=== PATIENT | female | born 1985 | race Caucasian/White ===

== ENCOUNTER → 2018-09-11 | Outpatient (CLI) | payer OTHER ==
--- NOTE | 2018-09-11 15:38 | US ---
EXAMINATION TYPE: US abdomen complete DATE OF EXAM: 09/11/2018 COMPARISON: NONE CLINICAL HISTORY: 33-year-old female R10.84 ABD Pain, R14.0 Bloating. NPO. Epigastric pain. Diarrhe a. TECHNIQUE: Multiple sonographic images of the abdomen are obtained. FINDINGS: EXAM MEASUREMENTS: Liver Length: 14.4 cm Gallbladder Wall: 0.1 cm CBD: 0.3 cm Spleen: 8.4 cm Right Kidney: 10.5 x 4.3 x 3.1 cm Left Kidney: 9.5 x 4.3 x 5.0 cm Pancreas: Within normal limits. Liver: wnl Gallbladder: wnl Evidence for sonographic Hinojosa's sign: neg CBD: wnl Spleen: wnl Right Kidney: wnl Left Kidney: wnl Upper IVC: wnl Abd Aorta: No AAA visualized IMPRESSION: Unremarkable sonographic examination of the abdomen.
--- NOTE | 2018-09-12 10:30 | NM ---
EXAMINATION TYPE: NM hepatobiliary w EF DATE OF EXAM: 09/11/2018 COMPARISON: NONE HISTORY: Right upper quadrant pain TECHNIQUE: After the intravenous administration of 4.66 mCi Tc 99m Mebrofenin hepatobiliary scintigra phy is performed. Immediate images post injection. 8 fluid ounces of Ensure Plus was administered by mouth. FINDINGS: There is satisfactory initial accumulation of tracer by the liver. The gallbladder is visualized wit hin 12 minutes. The small bowel activity is noted within 14 minutes. At one hour 8 ounces of oral e nsure plus is given to mimic CCK and gallbladder ejection fraction is not appropriately calculated gi lavon extensive overlying bowel content. IMPRESSION: Exam is within normal limits. Limited CCK calculation as noted above.
== END | disposition home or self-care (01) ==
LOC: RADUSWWP 11:53
PROVIDERS: ATTEND Family Medicine
DX: R10.84 Generalized abdominal pain (principal); R14.0 Abdominal distension (gaseous); Z88.5 Allergy status to narcotic agent
CPT/HCPCS: 76700; 78226; A9537

== ENCOUNTER → 2018-10-04 | Day surgery (SDC) | payer OTHER ==
[2018-10-01 09:11] VITALS: BMI 20.5
[~2018-10-04] MED LIST: LACTATED RINGERS 1,000 ML IV SCH; LIDOCAINE 1% INJ 10MG/ML (20 ML MDV) ONE; PROPOFOL 10 MG/ML 20 ML VIAL IV ONE
[2018-10-04 07:54] VITALS: TEMP 97.3
--- NOTE | 2018-10-04 08:42 | P.GSHP ---
History of Present Illness H&P Date: 10/04/18 Chief Complaint: Peptic ulcer disease, GI bleed This is a 33-year-old female with a known history of peptic ulcer disease. Patient also had some rectal bleeding. She presents today for EGD and colonoscopy. Past Medical History Past Medical History: GERD/Reflux Additional Past Medical History / Comment(s): "abdominal pain and bloating between rib area It feels like there is a rock there and diarrhea daily",hx hemorrhoids History of Any Multi-Drug Resistant Organisms: None Reported Past Surgical History: No Surgical Hx Reported Additional Past Surgical History / Comment(s): rt wrist procedure Past Anesthesia/Blood Transfusion Reactions: No Reported Reaction Additional Past Anesthesia/Blood Transfusion Reaction / Comment(s): no hx blood transfusion Smoking Status: Current every day smoker - Past Family History Mother Family Medical History: No Reported History Medications and Allergies Home Medications Medication Instructions Recorded Confirmed Type No Known Home Medications 10/01/18 10/04/18 History Allergies Allergy/AdvReac Type Severity Reaction Status Date / Time fentanyl Allergy Berny Verified 10/04/18 07:52 Alexey Syndrome hydromorphone [From Dilaudid] Allergy Berny Verified 10/04/18 07:52 Alexey Syndrome morphine Allergy Berny Verified 10/04/18 07:52 Alexey Syndrome Surgical - Exam Vital Signs Temp Pulse Resp BP Pulse Ox 97.3 F L 92 17 118/86 99 10/04/18 07:53 10/04/18 07:53 10/04/18 07:53 10/04/18 07:53 10/04/18 07:53 - General well developed, well nourished, no distress - Eyes PERRL - ENT normal pinna - Neck no masses - Respiratory normal expansion - Cardiovascular Rhythm: regular - Abdomen Abdomen: soft, non tender Assessment and Plan Assessment: History of peptic ulcers disease and GI bleed. We'll perform colonoscopy.
--- NOTE | 2018-10-04 09:03 | P.OP ---
Date of Procedure: 10/04/18 Preoperative Diagnosis: Peptic ulcer disease GI bleed Abdominal bloating Postoperative Diagnosis: Mild antral gastritis Normal colon Internal and external hemorrhoids Procedure(s) Performed: Colonoscopy Anesthesia: MAC Surgeon: Guy Daily Pathology: other (Antrum) Condition: stable Disposition: PACU Description of Procedure: The patient's placed on the endoscopy table in the lateral position. She received IV sedation. Digital rectal exam was performed which revealed internal/external hemorrhoids. The flexible colonoscope was then placed patient anus passed rotator entire colon. The ileocecal valve was visualized. The cecum, ascending and transverse colon appeared normal. The descending and sigmoid colon appeared normal. The scope was then brought back the rectum this is normal. Scope was withdrawn. Anus and internal hemorrhoids were noted. It was thought that this was a source of her previous GI bleed. Next the gastroscope placed oropharynx passed in the esophagus and stomach. Scope was then placed through the pylorus. The first and second portion of the duodenum appeared normal. Scope was then brought back the antrum was mildly inflamed. A biopsy performed. The scope was then retroflexed and the remainder of the stomach appeared normal. There was no significant hiatal hernia. The GE junction was at 40 cm the distal esophagus appeared normal. The proximal esophagus appeared normal. Scope withdrawn for patient.
[2018-10-04 09:08] VITALS: RESP 18
[2018-10-04 09:27] VITALS: BP 100/59; PULSE 68
--- NOTE | 2018-10-04 11:39 | NM ---
EXAMINATION TYPE: NM hepatobiliary w CCK DATE OF EXAM: 10/04/2018 COMPARISON: Prior nuclear medicine hepatobiliary scan of 09/11/2018 HISTORY: Indigestion TECHNIQUE: After the intravenous administration of 4.41 mCi Tc 99m Mebrofenin hepatobiliary scintigra phy is performed. Immediate images post injection. FINDINGS: There is satisfactory initial accumulation of tracer by the liver. The gallbladder is visualized wit hin 14 minutes. The small bowel activity is noted within 8 minutes. At one hour CCK was administere d, patient was injected with 1.1 mcg of Kinevac, and gallbladder ejection fraction is calculated at 7 3 %, slightly elevated. Therefore there is no scintigraphic evidence of cystic or common bile duct o bstruction to suggest acute cholecystitis or gallbladder dyskinesia. IMPRESSION: 1. No scintigraphic evidence of acute or chronic cholecystitis. 2. Slightly elevated gallbladder ejection fraction of 73%.
== END ==
LOC: ORWHC2ENDO 07:38
PROVIDERS: ATTEND Surgery
DX: K29.50 Unspecified chronic gastritis without bleeding (principal); K64.8 Other hemorrhoids; K64.4 Residual hemorrhoidal skin tags; Z87.11 Personal history of peptic ulcer disease; K21.9 Gastro-esophageal reflux disease without esophagitis; F17.200 Nicotine dependence, unspecified, uncomplicated; Z88.5 Allergy status to narcotic agent
CPT/HCPCS: 81025; 88305; 88342; 78227; 45378; 43239; A9537; J2805; J2001; J2704

== ENCOUNTER 2019-09-05 10:28 | Day surgery (SDC) | payer OTHER ==
[2019-09-03 13:20] VITALS: BMI 20.7
[~2019-09-05 10:28] MED LIST changes: -LIDOCAINE 1% INJ 10MG/ML (20 ML MDV) ONE; -PROPOFOL 10 MG/ML 20 ML VIAL IV ONE
[2019-09-05 11:49] VITALS: RESP 16; TEMP 97.2
[2019-09-05] MEDS ORDERED: MIDAZOLAM 2 MG/2 ML VIAL IV ONE (11:56)
--- NOTE | 2019-09-05 12:44 | P.GSHP ---
History of Present Illness H&P Date: 09/05/19 Chief Complaint: GERD This a 34-year-old female presents today for EGD. Patient presents with GERD. Past Medical History Past Medical History: GERD/Reflux Additional Past Medical History / Comment(s): "bad acid reflux" H-Pylori 08/2018, ulcer, diarrhea, hemorrhoids, History of Any Multi-Drug Resistant Organisms: None Reported Past Surgical History: Orthopedic Surgery Additional Past Surgical History / Comment(s): rachna salpingectomy, De Quervains surgery rt wrist, EGD, Colonoscopy Past Anesthesia/Blood Transfusion Reactions: Motion Sickness Additional Past Anesthesia/Blood Transfusion Reaction / Comment(s): . Smoking Status: Current every day smoker - Past Family History Mother Family Medical History: No Reported History Medications and Allergies Home Medications Medication Instructions Recorded Confirmed Type Pepcid(Dose Unknown) 1 tab PO BID 09/03/19 09/03/19 History Sucralfate [Carafate] 1 gm PO TID 09/03/19 09/05/19 History Allergies Allergy/AdvReac Type Severity Reaction Status Date / Time fentanyl Allergy Berny Verified 09/05/19 11:36 Alexey Syndrome hydromorphone [From Dilaudid] Allergy Berny Verified 09/05/19 11:36 Alexey Syndrome meperidine [From Demerol] Allergy berny Verified 09/05/19 11:36 alexey syndrome morphine Allergy Berny Verified 09/05/19 11:36 Alexey Syndrome Surgical - Exam Vital Signs Temp Pulse Resp BP Pulse Ox 97.2 F L 90 16 101/67 98 09/05/19 11:43 09/05/19 11:43 09/05/19 11:43 09/05/19 11:43 09/05/19 11:43 - General well developed, well nourished, no distress - Eyes PERRL - ENT normal pinna - Neck no masses - Respiratory normal expansion - Cardiovascular Rhythm: regular - Abdomen Abdomen: soft, non tender Assessment and Plan Assessment: GERD. We'll perform EGD.
--- NOTE | 2019-09-05 12:57 | P.OP ---
Date of Procedure: 09/05/19 Preoperative Diagnosis: GERD Gastritis Postoperative Diagnosis: Mild antral gastritis Anesthesia: MAC Surgeon: Guy Daily Pathology: other (Antrum, esophagus) Condition: stable Disposition: PACU Description of Procedure: The patient's placed on the endoscopy table in the lateral position. She received IV sedation. The gastroscope placed oropharynx passed in the esophagus and stomach. Scope was pylorus. The first and second portion duodenum appeared normal. Scope was then brought back the antrum was mildly inflamed. A biopsies performed. The scope was then retroflexed and the stomach. Normal. There is no significant hiatal hernia. The GE junction was at 40 cm. The distal esophagus. Inflamed a biopsies performed. The proximal esophagus appeared normal. Scope was withdrawn for patient.
[2019-09-05 13:16] VITALS: BP 98/62; PULSE 77
== END 2019-09-05 13:28 | disposition home or self-care (01) ==
LOC: ORWHC2ENDO 10:28
PROVIDERS: ATTEND Surgery
DX: K21.0 Gastro-esophageal reflux disease with esophagitis (principal); K29.50 Unspecified chronic gastritis without bleeding; F17.200 Nicotine dependence, unspecified, uncomplicated; F41.9 Anxiety disorder, unspecified; Z90.79 Acquired absence of other genital organ(s); Z98.890 Other specified postprocedural states; Z79.899 Other long term (current) drug therapy; Z88.4 Allergy status to anesthetic agent; Z88.5 Allergy status to narcotic agent
CPT/HCPCS: 81025; 88305; 43239; J2250

== ENCOUNTER 2024-09-16 09:00 | Emergency (ER) | payer OTHER ==
[2024-09-16] MEDS: KETOROLAC 15 MG/ML 1 ML VIAL IVP STA ×2 (10:00→13:18)
[2024-09-16] MEDS: ONDANSETRON 4 MG/2 ML VIAL IVP STA (10:00)
[2024-09-16] MEDS: SODIUM CHLORIDE 0.9% 1,000 ML IV ONE (10:01)
[2024-09-16 10:17] LABS: Basophils # (A) 0.08 10*3/uL (0.00-0.10); Basophils % (A) 1.4 %; Eosinophils # (A) 0.31 10*3/uL (0.04-0.35); Eosinophils % (A) 5.2 %; HCT 40.7 % (37.2-46.3); HGB 14.0 g/dL (12.0-15.0); Lymphocytes # (A) 1.74 10*3/uL (0.90-5.00); Lymphocytes % (A) 29.4 %; MCH 31.3 pg (27.0-32.0); MCHC 34.4 g/dL (32.0-37.0); MCV 91.1 fL (80.0-97.0); Monocytes # (A) 0.47 10*3/uL (0.20-1.00); Monocytes % (A) 8.0 %; Neutrophils # (A) 3.30 10*3/uL (1.80-7.70); Neutrophils % (A) 55.8 %; Platelet Count 292 10*3/uL (140-440); RBC 4.47 10*6/uL (4.10-5.20); RDW 11.8 % (11.5-14.5); WBC 5.91 10*3/uL (4.50-10.00)
[2024-09-16 10:19] LABS: Bilirubin,Urine Negative (Negative); Blood,Urine Negative (Negative); Color,Urine Colorless; Glucose,Urine (UA) Negative (Negative); Ketones,Urine Negative (Negative); Leukocyte Esterase,Urine Negative (Negative); Nitrite,Urine Negative (Negative); PH, Urine 7.5 (5.0-8.0); Protein,Urine Negative (Negative); Specific Gravity,Urine 1.015 (1.001-1.035); Urobilinogen,Urine <2.0 mg/dL (<2.0)
[2024-09-16 10:31] LABS: ALT 18 U/L (4-34); AST 21 U/L (14-36); African American GFR (CKD) 87 (>60 ml/min/1.73 sqM); Albumin 3.8 g/dL (3.5-5.0); Alkaline Phosphatase 57 U/L (38-126); Anion Gap 5 mmol/L; Blood Urea Nitrogen 11 mg/dL (7-17); Calcium 8.8 mg/dL (8.4-10.2); Carbon Dioxide 26 mmol/L (22-30); Chloride 106 mmol/L (98-107); Glucose 80 mg/dL (74-99); Lipase 65 U/L (23-300); Non-African American GFR(CKD) 75 (>60 ml/min/1.73 sqM); Potassium 4.3 mmol/L (3.5-5.1); Sodium 137 mmol/L (137-145); Total Protein 6.1 g/dL (6.3-8.2)
--- NOTE | 2024-09-16 11:34 | CT ---
EXAMINATION TYPE: CT abdomen pelvis w con DATE OF EXAM: 09/16/2024 11:21 AM COMPARISON: None. CLINICAL INDICATION: Female, 39 years old with history of abdominal pain RLQ, rlq pain TECHNIQUE:CT scan of the abdomen and pelvis is performed without Oral Contrast and with IV Contrast, patient injected with 100ml mL of Isovue 300. CT DLP: 580.2 mGycm, Automated exposure control for dose reduction was used. FINDINGS: LUNG BASES-: No visible nodule. No infiltrate. LIVER/GB: No calcified gallstones. No space occupying hepatic lesion. Biliary tree is of normal ca liber. PANCREAS: No inflammation. No distinct mass. SPLEEN: No splenic enlargement. No lesion seen. ADRENALS: No nodule. No thickening. KIDNEYS/BLADDER: No hydronephrosis. No nephrolithiasis. No distinct renal mass. Urinary bladder g rossly unremarkable. BOWEL: Normal appendix. Normal bowel caliber. No inflammation. GENITAL ORGANS: No gross abnormality. LYMPH NODES: No greater than 1cm abdominal or pelvic lymph nodes are appreciated. AORTA: No significant abnormality. OSSEOUS STRUCTURES: No significant abnormality is seen. OTHER: No significant additional abnormality is seen. IMPRESSION: 1. Normal appendix no acute process is seen. Multiple small right ovarian follicular cysts. [facility], , 09/16/2024 11:31 AM
--- NOTE | 2024-09-16 12:34 | ED ---
Abdominal Pain HPI - General Chief Complaint: Abdominal Pain Stated Complaint: Lower right abd pain Time Seen by Provider: 09/16/24 09:02 Source: patient, RN notes reviewed Mode of arrival: ambulatory Limitations: no limitations - History of Present Illness Initial Comments: 39-year-old female presents emergency department complaint abdominal pain. Sarahi ent states pain is in the right lower quadrant. Sudden onset intermittent discomfort. Patient states she has had prior open to removal, no other abdominal surgeries denies any dysuria hematuria. No change in bowel habits. Denies any fevers or chills. Patient denies any change in vaginal bleeding or any other associated symptoms. - Related Data Home Medications Medication Instructions Recorded Confirmed Ferrous Sulfate [Feosol] 325 mg PO Q3D 09/16/24 09/16/24 Previous Rx's Medication Instructions Recorded Ketorolac [Toradol] 10 mg PO Q8HR #15 tab 09/16/24 Allergies Allergy/AdvReac Type Severity Reaction Status Date / Time fentanyl Allergy Berny Verified 09/16/24 11:18 Alexey Syndrome hydromorphone [From Dilaudid] Allergy Berny Verified 09/16/24 11:18 Alexey Syndrome meperidine [From Demerol] Allergy berny Verified 09/16/24 11:18 alexey syndrome morphine Allergy Berny Verified 09/16/24 11:18 Alexey Syndrome Review of Systems ROS Statement: Those systems with pertinent positive or pertinent negative responses have been documented in the HPI. ROS Other: All systems not noted in ROS Statement are negative. Past Medical History Past Medical History: GERD/Reflux Additional Past Medical History / Comment(s): "bad acid reflux" H-Pylori 08/2018, ulcer, diarrhea, hemorrhoids, History of Any Multi-Drug Resistant Organisms: None Reported Past Surgical History: Orthopedic Surgery Additional Past Surgical History / Comment(s): rachna salpingectomy, De Quervains surgery rt wrist, EGD, Colonoscopy Past Anesthesia/Blood Transfusion Reactions: Motion Sickness Additional Past Anesthesia/Blood Transfusion Reaction / Comment(s): . Past Psychological History: Anxiety Smoking Status: Current every day smoker Past Alcohol Use History: Rare Past Drug Use History: None Reported - Past Family History Mother Family Medical History: No Reported History General Exam Limitations: no limitations General appearance: alert, in no apparent distress Head exam: Present: atraumatic, normocephalic, normal inspection Eye exam: Present: normal appearance, PERRL, EOMI. Absent: scleral icterus, conjunctival injection, periorbital swelling Respiratory exam: Present: normal lung sounds bilaterally. Absent: respiratory distress, wheezes, rales, rhonchi, stridor Cardiovascular Exam: Present: regular rate, normal rhythm, normal heart sounds. Absent: systolic murmur, diastolic murmur, rubs, gallop, clicks GI/Abdominal exam: Present: soft, tenderness, normal bowel sounds. Absent: distended, guarding, rebound, rigid Back exam: Absent: CVA tenderness (R), CVA tenderness (L) Neurological exam: Present: alert, oriented X3, CN II-XII intact Skin exam: Present: warm, dry, intact, normal color. Absent: rash Course Vital Signs 09/16/24 09/16/24 09:10 13:24 Temperature 98.2 F 98.3 F Pulse Rate 121 H 62 Respiratory 20 18 Rate Blood Pressure 138/84 119/83 O2 Sat by Pulse 99 100 Oximetry Medical Decision Making - Medical Decision Making Was pt. sent in by a medical professional or institution (, PA, SLOT MACHINE KEY PERSON, urgent care, hospital, or long-term...) When possible be specific @ -[No] Did you speak to anyone other than the patient for history (EMS, parent, family, police, friend...)? What history was obtained from this source @ -[No] Did you review nursing and triage notes (agree or disagree)? Why? @ -[I reviewed and agree with nursing and triage notes] Were old charts reviewed (outside hosp., previous admission, EMS record, old EKG, old radiological studies, urgent care reports/EKG's, long-term records)? Report findings @ -[No old charts were reviewed] Differential Diagnosis (chest pain, altered mental status, abdominal pain women, abdominal pain men, vaginal bleeding, weakness, fever, dyspnea, syncope, heada kentrell, dizziness, GI bleed, back pain, seizure, CVA, palpatations, mental health, musculoskeletal)? @ -Differential Abdominal Pain Women: Appendicitis, Cholecystitis, diverticulosis, ischemic bowel, pancreatitis, hepatitis, UTI, gastroenteritis, AAA, incarcerated hernia, bowel obstruction, constipation, inflammatory bowel, hepatitis, peptic ulcer disease, splenic infarction, perforated viscus, vulvitis, ovarian torsion, PID, kidney stone, placenta abruption, this is not meant to be an all-inclusive list EKG interpreted by me (3pts min.). @ -None X-rays interpreted by me (1pt min.). @ -[None done] CT interpreted by me (1pt min.). @ -CT abdomen pelvis showing normal appendix, follicles are noted of the ovaries U/S interpreted by me (1pt. min.). @ -Also transvaginal shows multiple follicles no acute process What testing was considered but not performed or refused? (CT, X-rays, U/S, labs)? Why? @ -[None] What meds were considered but not given or refused? Why? @ -[None] Did you discuss the management of the patient with other professionals (professionals i.e. , PA, SLOT MACHINE KEY PERSON, lab, RT, psych nurse, social work therapist, ramp agent, teacher, corporate trust officer, manager research and development)? Give summary @ -[No] Was smoking cessation discussed for >3mins.? @ -[No] Was critical care preformed (if so, how long)? @ -[No] Were there social determinants of health that impacted care today? How? (Homelessness, low income, unemployed, alcoholism, drug addiction, transportation, low edu. Level, literacy, decrease access to med. care, intermediate, rehab)? @ -[No] Was there de-escalation of care discussed even if they declined (Discuss DNR or withdrawal of care, Hospice)? DNR status @ -[No] What co-morbidities impacted this encounter? (DM, HTN, Smoking, COPD, CAD, Cancer, CVA, ARF, Chemo, Hep., AIDS, mental health diagnosis, sleep apnea, morbid obesity)? @ -[None] Was patient admitted / discharged? Hospital course, mention meds given and route, prescriptions, significant lab abnormalities, going to OR and other pertinent info. @ -Discharge patient presented for abdominal pain with other quadrant. Patient has no evidence of appendicitis or acute process. Patient laboratory studies unremarkable urinalysis unremarkable. In stable condition return parameters rufus. Undiagnosed new problem with uncertain prognosis? @ -[No] Drug Therapy requiring intensive monitoring for toxicity (Heparin, Nitro, Insulin, Cardizem)? @ -[No] Were any procedures done? @ -[No] Diagnosis/symptom? @ -Abdominal pain Acute, or Chronic, or Acute on Chronic? @ -Acute Uncomplicated (without systemic symptoms) or Complicated (systemic symptoms)? @ -Complicated Side effects of treatment? @ -[No] Exacerbation, Progression, or Severe Exacerbation? @ -[No] Poses a threat to life or bodily function? How? (Chest pain, USA, MS, pneumonia, PE, COPD, DKA, ARF, appy, cholecystitis, CVA, Diverticulitis, Homicidal, Suicidal, threat to staff... and all critical care pts) @ -[No] - Lab Data Result diagrams: 09/16/24 09:34 09/16/24 09:34 Lab Results 09/16/24 09/16/24 09/16/24 Range/Units 09:34 09:34 09:34 WBC 5.91 (4.50-10.00) 10*3/uL RBC 4.47 (4.10-5.20) 10*6/uL Hgb 14.0 (12.0-15.0) g/dL Hct 40.7 (37.2-46.3) % MCV 91.1 (80.0-97.0) fL MCH 31.3 (27.0-32.0) pg MCHC 34.4 (32.0-37.0) g/dL Plt Count 292 (140-440) 10*3/uL MPV 9.1 L (9.5-12.2) fL Immature Gran % (Auto) 0.2 % Neutrophils % 55.8 % Lymphocytes % 29.4 % Monocytes % 8.0 % Eosinophils % 5.2 % Basophils % 1.4 % Immature Gran # 0.01 (0.00-0.04) 10*3/uL Neutrophils # 3.30 (1.80-7.70) 10*3/uL Lymphocytes # 1.74 (0.90-5.00) 10*3/uL Monocytes # 0.47 (0.20-1.00) 10*3/uL Eosinophils # 0.31 (0.04-0.35) 10*3/uL Basophils # 0.08 (0.00-0.10) 10*3/uL Sodium 137 (137-145) mmol/L Potassium 4.3 (3.5-5.1) mmol/L Chloride 106 (98-107) mmol/L Carbon Dioxide 26 (22-30) mmol/L Anion Gap 5 mmol/L BUN 11 (7-17) mg/dL Creatinine 0.95 (0.52-1.04) mg/dL Est GFR (CKD-EPI)AfAm 87 (>60 ml/min/1.73 sqM) Est GFR (CKD-EPI)NonAf 75 (>60 ml/min/1.73 sqM) Glucose 80 (74-99) mg/dL Plasma Lactic Acid Masood (0.7-2.0) mmol/L Calcium 8.8 (8.4-10.2) mg/dL Total Bilirubin 0.5 (0.2-1.3) mg/dL AST 21 (14-36) U/L ALT 18 (4-34) U/L Alkaline Phosphatase 57 (38-126) U/L Total Protein 6.1 L (6.3-8.2) g/dL Albumin 3.8 (3.5-5.0) g/dL Lipase 65 (23-300) U/L Urine Color Colorless Urine Appearance Clear (Clear) Urine pH 7.5 (5.0-8.0) Ur Specific [place] 1.015 (1.001-1.035) Urine Protein Negative (Negative) Urine Glucose (UA) Negative (Negative) Urine Ketones Negative (Negative) Urine Blood Negative (Negative) Urine Nitrite Negative (Negative) Urine Bilirubin Negative (Negative) Urine Urobilinogen <2.0 (<2.0) mg/dL Ur Leukocyte Esterase Negative (Negative) 09/16/24 Range/Units 09:34 WBC (4.50-10.00) 10*3/uL RBC (4.10-5.20) 10*6/uL Hgb (12.0-15.0) g/dL Hct (37.2-46.3) % MCV (80.0-97.0) fL MCH (27.0-32.0) pg MCHC (32.0-37.0) g/dL Plt Count (140-440) 10*3/uL MPV (9.5-12.2) fL Immature Gran % (Auto) % Neutrophils % % Lymphocytes % % Monocytes % % Eosinophils % % Basophils % % Immature Gran # (0.00-0.04) 10*3/uL Neutrophils # (1.80-7.70) 10*3/uL Lymphocytes # (0.90-5.00) 10*3/uL Monocytes # (0.20-1.00) 10*3/uL Eosinophils # (0.04-0.35) 10*3/uL Basophils # (0.00-0.10) 10*3/uL Sodium (137-145) mmol/L Potassium (3.5-5.1) mmol/L Chloride (98-107) mmol/L Carbon Dioxide (22-30) mmol/L Anion Gap mmol/L BUN (7-17) mg/dL Creatinine (0.52-1.04) mg/dL Est GFR (CKD-EPI)AfAm (>60 ml/min/1.73 sqM) Est GFR (CKD-EPI)NonAf (>60 ml/min/1.73 sqM) Glucose (74-99) mg/dL Plasma Lactic Acid Masood 0.8 (0.7-2.0) mmol/L Calcium (8.4-10.2) mg/dL Total Bilirubin (0.2-1.3) mg/dL AST (14-36) U/L ALT (4-34) U/L Alkaline Phosphatase (38-126) U/L Total Protein (6.3-8.2) g/dL Albumin (3.5-5.0) g/dL Lipase (23-300) U/L Urine Color Urine Appearance (Clear) Urine pH (5.0-8.0) Ur Specific [place] (1.001-1.035) Urine Protein (Negative) Urine Glucose (UA) (Negative) Urine Ketones (Negative) Urine Blood (Negative) Urine Nitrite (Negative) Urine Bilirubin (Negative) Urine Urobilinogen (<2.0) mg/dL Ur Leukocyte Esterase (Negative) Disposition Clinical Impression: Abdominal pain Disposition: HOME SELF-CARE Condition: Stable Instructions (If sedation given, give patient instructions): Abdominal Pain (ED) Additional Instructions: Please return to the Emergency Department if symptoms worsen or any other concerns. Prescriptions: Ketorolac [Toradol] 10 mg PO Q8HR #15 tab Is patient prescribed a controlled substance at d/c from ED?: No Referrals: Christiano Medrano DO [Primary Care Provider] - 1-2 days Time of Disposition: 13:00
--- NOTE | 2024-09-16 12:40 | US ---
EXAMINATION TYPE: US transvaginal DATE OF EXAM: 09/16/2024 COMPARISON: CT 09/16/2024 CLINICAL INDICATION: Female, 39 years old with history of pain right; Right sided pelvic pain since . TECHNIQUE: Transvaginal (TV). Transvaginal grayscale sonographic images of the pelvis were acquired Doppler imaging: Color Doppler Images were obtained. Spectral doppler images were obtained. FINDINGS: Date of LMP: 09/05/2024 EXAM MEASUREMENTS: Uterus: 7.0 x 3.8 x 4.6 cm Endometrial Stripe: 0.2 cm Right Ovary: 2.6 x 2.1 x 2.0 cm Left Ovary: 3.2 x 1.3 x 2.4 cm 1. Uterus: Anteverted wnl, nabothian cyst seen 2. Endometrium: wnl 3. Right Ovary: wnl, multiple follicles visualized 4. Left Ovary: wnl, multiple follicles seen Spectral, color and waveform doppler imaging shows good arterial and venous flow within the ovaries ; there is no evidence for ovarian torsion. 5. Bilateral Adnexa: wnl 6. Posterior cul-de-sac: wnl Anteverted uterus without focal lesion. Incidental cervical nabothian cyst. Endometrium is within nor mal limits. Both ovaries appear unremarkable multiple follicles seen. No evidence for torsion. No leah e fluid. IMPRESSION: No ultrasound evidence for acute pelvic process. [facility], , 09/16/2024 12:37 PM
[2024-09-16 13:25] VITALS: BP 119/83; PULSE 62; RESP 18; TEMP 98.3
== END 2024-09-16 13:25 | disposition home or self-care (01) ==
LOC: EC 09:00
DX: R10.31 Right lower quadrant pain (principal); Z90.79 Acquired absence of other genital organ(s); F17.200 Nicotine dependence, unspecified, uncomplicated; Z88.5 Allergy status to narcotic agent; Z88.8 Allergy status to other drugs, medicaments and biological substances
CPT/HCPCS: 36415; 80053; 83605; 83690; 85025; 81003; 76830; 74177; 99284; 96374; 96375; 96376; 96361; J2405; J1885; Q9967; 93975